=== PATIENT | male | born 1940 | race Caucasian/White ===

== ENCOUNTER 2019-04-16 14:25 | Observation (INO) | payer MEDICARE, BC ==
[2019-04-16] MEDS ORDERED: Acetaminophen 500 MG TAB ONE (15:16)
--- NOTE | 2019-04-16 15:25 | RAD ---
EXAM: Single view of the chest HISTORY: Syncope; fever and cough COMPARISON: None FINDINGS: Single view of the chest shows a normal sized cardiomediastinal silhouette. There is no leo dence of consolidation, mass, or pleural effusion. The bones are unremarkable. IMPRESSION: No evidence of acute cardiopulmonary disease
[2019-04-16] MEDS ORDERED: cefTRIAXone\\ROCEPHIN 2 GM VIAL ONE (15:35)
[2019-04-16 16:11] LABS: #Lymphocytes 0.5 thou/uL (1.20-3.40); #Monocytes 0.5 thou/uL (0.11-0.59); #Neutrophils 5.5 thou/uL (1.40-6.50); %Basophils 0.1 % (0.0-1.0); %Eosinophils 0.2 % (0.0-10.0); %Lymphocytes 7.4 % (21.0-51.0); %Monocytes 8.3 % (0.0-10.0); Mean Corpuscular HGB CONC 33.1 g/dL (32.0-36.0); Mean Corpuscular Hemoglobin 32.7 pg (27.0-31.0); Mean Corpuscular Volume 98.7 fL (78.0-98.0); Mean Platelet Volume 6.3 fL (7.4-10.4); Platelet Count 105 thou/uL (130-400); RBC Distribution Width 11.9 % (11.5-14.5); Red Blood Cell (RBC) Count 2.44 mill/uL (4.70-6.10); White Blood Cell (WBC) Count 6.5 thou/uL (4.8-10.8)
[2019-04-16 16:20] LABS: MDiff Complete? YES; Ovalocytes SLIGHT = 2-5 cells (100X) (0-1/hpf); Platelet Morphology Comment Appears Decreased; Polychromasia SLIGHT = 2-3 cells (100X) (0-2/hpf)
[2019-04-16] MEDS ORDERED: Azithromycin 500 MG VIAL ONE (16:22)
[2019-04-16] MEDS ORDERED: Sodium Chloride 0.9% 1,000 ML IV SCH (18:06)
[2019-04-16] MEDS ORDERED: Ondansetron PF 4 MG/2 ML Vial IVP PRN (18:06)
[2019-04-16] MEDS ORDERED: Ondansetron ODT 4 MG TAB SL PRN (18:06)
[2019-04-16] MEDS ORDERED: Acetaminophen 325 MG TAB PO PRN (18:06)
[2019-04-16 18:10] VITALS: BMI 25.0
[2019-04-16] MEDS ORDERED: Calcium Carbonate 500 MG ChewTAB PO PRN (21:33)
[2019-04-16] MEDS ORDERED: Diabetic Tussin 200 MG/10 ML UDCUP PO PRN (21:35)
--- NOTE | 2019-04-16 21:41 | PDOC.HHP ---
Hospitalist HPI - History of Present Illness Cough and congestion History of Present Illness: Mr. Evans is a 78-year-old gentleman with past medical history of hyperlipidemia who is presenting with cough for the last 5 days. Reportedly went to his primary care clinic today because he had been sick with cough, congestion and had an episode of passing out in the office. He had a fever of 100.3 and was sent to the emergency room for evaluation for possible pneumonia. He states that the symptoms have been the same for the past 4 or 5 days. He has some recent travel to [place], [place], and [place]. He has never had a pneumonia before. He denies any shortness of breath. He denies any phlegm production from the cough. No other reported symptoms. Hospitalist ROS - Review of Systems Constitutional: denies: fever, chills, sweats, weakness, malaise, other Eyes: denies: pain, vision change, conjunctivae inflammation, eyelid inflammation, redness, other ENT: denies: ear pain, ear discharge, nose pain, nose discharge, nose congestion , mouth pain, mouth swelling, throat pain, throat swelling, other Respiratory: reports: cough. denies: dry, shortness of breath, hemoptysis, SOB with excertion, pleuritic pain, sputum, wheezing, other Cardiovascular: denies: chest pain, palpitations, orthopnea, paroxysmal noc. dyspnea, edema, light headedness, other Gastrointestinal: denies: nausea, vomiting, abdominal pain, diarrhea, constipation, melena, hematochezia, other Genitourinary: denies: dysuria, frequency, incontinence, hematuria, retention, other Musculoskeletal: denies: neck pain, shoulder pain, arm pain, back pain, hand pain, leg pain, foot pain, other Skin: denies: rash, lesions, rajat, bruising, other Neurological: denies: weakness, numbness, incoordination, change in speech, confusion, seizures, other - Medication Medications: Active Medications Generic Name Dose Route Start Last Admin Trade Name Freq PRN Reason Stop Dose Admin Sodium Chloride 1,000 mls @ 100 mls/hr 04/16/19 18:06 04/16/19 18:22 Normal Saline 0.9% IV 04/17/19 03:30 1,000 mls .Q10H ALLYSSA Administration Medication Instructions Recorded Confirmed Type [place]-3 Fatty Acids/Fish Oil [Fish 1 cap PO DAILY 04/16/19 04/16/19 History Oil 1,000 mg Capsule] Simvastatin [Zocor] 40 mg PO HS 04/16/19 04/16/19 History Hospitalist History - Past Medical History Cardiac: reports: Hyperlipidemia Pulmonary: reports: no pertinent history [employer] WORK[employer]: reports: no pertinent history Gastrointestinal: reports: no pertinent history Heme/Onc: reports: no pertinent history Hepatobiliary: reports: no pertinent history Psych: reports: no pertinent history Musculoskeletal: reports: no pertinent history Rheumatologic: reports: no pertinent history Infectious Disease: reports: no pertinent history ENT: reports: no pertinent history Renal/: reports: no pertinent history Endocrine: reports: no pertinent history Dermatology: reports: no pertinent history - Past Surgical History Past Surgical History: reports: no pertinent history - Family History Family History: reports: cardiac disorder - Social History Smoking Status: Never smoker Alcohol: reports: None Drugs: reports: none Living Situation: With Family Activity level: independent ambulation - Exam General Appearance: NAD, awake alert Eye: PERRL, anicteric sclera ENT: normocephalic atraumatic, no oropharyngeal lesions, moist mucosa Neck: supple, symmetric, no JVD, no thyromegaly, no lymphadenopathy, no carotid bruit Heart: RRR, no murmur, no gallops, no rubs, normal peripheral pulses Respiratory: CTAB, no wheezes, no rales, no ronchi, normal chest expansion, no tachypnea, normal percussion Gastrointestinal: soft, non-tender, non-distended, normal bowel sounds, no palpable masses, no hepatomegaly, no splenomegaly, no bruit Extremities: no cyanosis, no clubbing, no edema Skin: normal turgor, no lesions, no rashes Neurological: cranial nerve grossly intact, normal sensation to touch, no weakness, no focal deficits, no new deficit Musculoskeletal: normal tone, normal strength, no muscle wasting Psychiatric: normal affect, normal behavior, A&O x 3 Hospitalist Results - Labs Result Diagrams: 04/16/19 15:52 Lab results: WBC 6.5 thou/uL (4.8-10.8) 04/16/19 15:52 Hgb 8.0 g/dL (14.0-18.0) L 04/16/19 15:52 Hct 24.1 % (42.0-52.0) L 04/16/19 15:52 MCV 98.7 fL (78.0-98.0) H 04/16/19 15:52 Plt Count 105 thou/uL (130-400) L 04/16/19 15:52 Neutrophils % 84.0 % (42.0-75.0) H 04/16/19 15:52 Lactic Acid 1.6 mmol/L (0.5-2.2) 04/16/19 15:52 Creatine Kinase 117 U/L (30-200) 04/16/19 15:52 Troponin I Less than 0.010 ng/mL (< 0.028) 04/16/19 15:52 B-Natriuretic Peptide 32.7 pg/mL (0-100) 04/16/19 15:52 - Radiology Interpretation Chest x-ray Status: report reviewed by me Hospitalist H&P A/P - Problem (1) Acute bronchitis Code(s): J20.9 - ACUTE BRONCHITIS, UNSPECIFIED Status: Acute (2) Hypercholesteremia Code(s): E78.00 - PURE HYPERCHOLESTEROLEMIA, UNSPECIFIED Status: Acute (3) Anemia Code(s): D64.9 - ANEMIA, UNSPECIFIED Status: Acute (4) Thrombocytopenia Code(s): D69.6 - THROMBOCYTOPENIA, UNSPECIFIED Status: Acute - Plan Plan: I do not see evidence that this is a pneumonia, this is likely a viral bronchitis, will order a procalcitonin and a respiratory viral panel, he is already received a dose of antibiotics in the ED, if repeat chest x-ray and procalcitonin are suggestive of bacterial component, can restart antibiotics from there, however would favor a conservative strategy at this time Guafenisen and DuoNebs PRN Tylenol PRN He receives B12 injections for anemia, will check a B12 and folate level, he also has thrombocytopenia, will check a peripheral smear We will continue home medications once they are reconciled DVT prophylaxis: SCDs CODE STATUS: Full code 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 Hold off on antibiotics for now.
[2019-04-17 06:01] LABS: ALT (SGPT) 9 U/L (8-55); AST (SGOT) 12 U/L (5-34); Albumin 3.6 g/dL (3.4-4.8); Alkaline Phosphatase 50 U/L (40-110); Anion Gap 11 mmol/L (10-20); BUN (Urea Nitrogen) 29 mg/dL (8.4-25.7); Bilirubin, Total 0.7 mg/dL (0.2-1.2); Calc. Creatinine Clearance 35 mL/min (70-130); Calcium 8.3 mg/dL (7.8-10.44); Carbon Dioxide 23 mmol/L (23-31); Chloride 104 mmol/L (98-107); Estimated GFR-MDRD 34; Glucose 99 mg/dL (83-110); Potassium 3.9 mmol/L (3.5-5.1); Protein, Total 6.6 g/dL (5.8-8.1); Sodium 134 mmol/L (136-145)
[2019-04-17 07:05] LABS: Hemoglobin 12.3 g/dL (14.0-18.0); Mean Corpuscular HGB CONC 33.8 g/dL (32.0-36.0); Mean Corpuscular Hemoglobin 32.8 pg (27.0-31.0); Mean Corpuscular Volume 97.1 fL (78.0-98.0); Mean Platelet Volume 6.3 fL (7.4-10.4); Platelet Count 165 thou/uL (130-400); Red Blood Cell (RBC) Count 3.74 mill/uL (4.70-6.10); White Blood Cell (WBC) Count 8.9 thou/uL (4.8-10.8)
--- NOTE | 2019-04-17 07:33 | RAD ---
EXAM: Chest 2 views: HISTORY: Bronchitis COMPARISON: None. FINDINGS: There is a normal-sized cardiomediastinal silhouette. Atherosclerotic calcifications are seen in the aorta. There is no evidence of consolidation, mass, or pleural effusion. The bones are unremarkable. IMPRESSION: No evidence of acute cardiopulmonary disease
[2019-04-17 08:08] LABS: Band 27 % (5-11); Burr Cells SLIGHT = 2-5 cells (100X) (0-1/hpf); Lymphocytes 24 % (21-51); MDiff Complete? YES; Monocytes 11 % (0-10); Neutrophil 38 % (42-75); Platelet Morphology Comment Appears Adequate; Polychromasia SLIGHT = 2-3 cells (100X) (0-2/hpf)
--- NOTE | 2019-04-17 08:46 | PDOC.HOSPP ---
- Subjective Encounter Date: 04/17/19 Encounter Time: 12:30 Subjective: Patient feeling better. Still with some cough. No SOB. No chest pain. - Objective Vital Signs & Weight: Vital Signs (12 hours) Temp Pulse Resp BP Pulse Ox 04/17/19 07:40 98.8 F 83 20 165/79 H 94 L 04/17/19 05:00 98.4 F 60 20 156/80 H 95 04/16/19 23:35 98.2 F 80 16 126/75 97 Weight Weight 174 lb Result Diagrams: 04/17/19 06:27 04/17/19 05:13 Hospitalist ROS - Review of Systems Constitutional: denies: fever, chills Respiratory: reports: cough. denies: shortness of breath Cardiovascular: denies: chest pain, palpitations Gastrointestinal: denies: nausea, vomiting, abdominal pain - Exam General Appearance: NAD, awake alert ENT: moist mucosa Heart: RRR, no murmur, no gallops, no rubs Respiratory: CTAB, no wheezes, no rales, no ronchi Gastrointestinal: soft, non-tender, non-distended, normal bowel sounds Psychiatric: normal affect, normal behavior, A&O x 3 Hosp A/P (1) Acute bronchitis Code(s): J20.9 - ACUTE BRONCHITIS, UNSPECIFIED Status: Acute (2) Hypercholesteremia Code(s): E78.00 - PURE HYPERCHOLESTEROLEMIA, UNSPECIFIED Status: Chronic - Plan Significant anemia and thrombocytopenia resolved this AM, suspect lab error in ER No leukocytosis, CXR remains negative. Appears to be uncomplicated bronchitis. D/C on Azithromycin, cough meds. F/u PCP.
[2019-04-17] MEDS ORDERED: Non-Formulary Item 1 EACH (Omega-3 Fatty Acids/Fish Oil [Fish Oil 1,000 Mg Capsule] 1 CAP PO SCH (09:00)
[2019-04-17] MEDS ORDERED: Fish Oil 1,000 MG CAP PO SCH (09:00)
[2019-04-17] MEDS ORDERED: FLU VACC TS2019-20(65YR UP)/PF 180 MCG/0.5 ML SYRINGE IM ONE (09:00)
[2019-04-17 12:12] VITALS: BP 153/84; TEMP 98.9
[2019-04-17] MEDS ORDERED: Prevnar 13-Val Conj/PF 0.5 ML SYRINGE IM ONE (14:30)
[2019-04-17] MEDS ORDERED: Atorvastatin Calcium 20 MG TAB PO SCH (21:00)
[2019-04-17] MEDS ORDERED: Simvastatin 40 MG TAB PO SCH (21:00)
--- NOTE | 2019-04-18 02:25 | DIS ---
DATE OF ADMISSION: 04/16/2019 DATE OF DISCHARGE: 04/17/2019 PRIMARY CARE PHYSICIAN: Keven Jose. REASON FOR ADMISSION: Cough, congestion, possible pneumonia. DIAGNOSES AT DISCHARGE: 1. Acute bronchitis. 2. Hypercholesterolemia. 3. Anemia and thrombocytopenia on initial lab work, resolved on repeat, suspected lab error. PROCEDURES PERFORMED: PA and lateral chest x-ray showing no evidence for acute cardiopulmonary disease. No evidence for pneumonia. CONSULTATIONS: None. SUMMARY OF HOSPITAL COURSE: This is a 78-year-old white male with a history of hyperlipidemia, no history of asthma or COPD, who presents with a cough for 5 days. He went to his primary care clinic today with cough and congestion and then had an episode of passing out in the office, had a fever of 100.3. He was sent to the emergency room for evaluation for possible pneumonia. The patient was seen in the emergency room, given IV antibiotics and observed in the hospital overnight. He had a repeat PA and lateral chest x-ray, which showed no evidence for pneumonia. He had negative lactic acid, negative procalcitonin, negative respiratory viral panel, negative flu. His white blood cell count was normal and he was doing fine the next day. His cough was improved with guaifenesin and he is being discharged home. DISCHARGE MANAGEMENT: Discharged home. ACTIVITY: As tolerated. DIET: Healthy heart diet. FOLLOWUP: Follow up with primary care physician in the next 2 to 3 weeks if not improving. DISCHARGE MEDICATIONS: 1. Azithromycin 250 mg daily for another four days for full five days of antibiotics. 2. Tessalon Perles 100 mg 3 times a day as needed for cough. 3. Guaifenesin 600 mg twice a day as needed for congestion, 30 tablets dispensed each of those. 4. Fish oil 1000 mg daily. 5. Simvastatin 40 mg at night. Job ID: [id number]
== END 2019-04-17 14:57 | disposition home or self-care (01) ==
LOC: ERS 14:25 → T4-A 15:57 → INTOOBSV 15:57
PROVIDERS: ADMIT Internal Medicine; ATTEND Emergency Medicine
DX: J20.9 Acute bronchitis, unspecified (principal); E78.00 Pure hypercholesterolemia, unspecified; D64.9 Anemia, unspecified; D69.6 Thrombocytopenia, unspecified; I70.0 Atherosclerosis of aorta; I10 Essential (primary) hypertension; E78.5 Hyperlipidemia, unspecified; Z79.899 Other long term (current) drug therapy
CPT/HCPCS: 71045; 71046; 80053; 82550; 82607; 82746; 83605; 83880; 84145; 84484; 85007; 85025; 85027; 87040; 87633; 87798 ×2; 87804 ×2; 93005; 96361 ×3; 96365; 96367; 99285; G0378 ×2; 36415; 85060; J0456; J0696